=== PATIENT | male | born 1970 | race Caucasian/White ===

== ENCOUNTER 2016-10-06 22:08 | Emergency (ER) | payer OTHER ==
[~2016-10-06] VITALS: Ht 176.5 cm; Wt 89.8 kg
[~2016-10-06 22:08] MED LIST: CEFDINIR 300MG300 MG PO; FLEXERIL10 MG PO; LORTAB 500 MG-71 TAB PO; MEDROL 4MG. DOSE4 MG PO; MUCINEX1200 MG PO; PREDNISONE 20MG20 MG PO; [UNRECOGNIZED DRUG - OTHER] PO
[2016-10-06] MEDS ORDERED: ALBUTEROL-200 PUFFS/ IH (22:18)
[2016-10-06] MEDS ORDERED: AVPAK AZITHROM250 MG PO (22:18)
--- NOTE | 2016-10-07 00:04 | Emergency Room Report ---
History of Present Illness Time Seen by [id number] Presenting Problem in Triage Pt arrived:Walked Presenting Problem:PT COMPLAINING OF SHORTNESS OF BREATH. PT STATES IT HURTS WHEN HE TAKES A DEEP BREATH. PT STATES HE IS CURRENTLY BEING TREATED FOR A BACTERIAL LUNG INFECTION WITH AZITHROMYCIN, ALBUTEROL INHALER. PT STATES THAT HE STARTED THE ANTIBIOTICS ON 10/04/16. PT STATES HE IS ALSO HAVING PAIN IN UPPER RIGHT SIDE OF CHEST THAT STARTED ABOUT 2100 THIS PM Onset of symptoms date/time:10/02/16 or onset unknown for: Treatment Prior to Arrival: PT GIVEN AZITHROMYCIN AND ALBUTEROL ON 10/04/16 [employer] Provided by:PHYSICIAN Sepsis Risk Assessment: Temp: 98.5 B/P: 142/77 MAP: 122 Pulse: 97 Resp: 18 Recent fever? N Clinical Suspician of Infection? N Mental Status: 1 - Regular (Normal Baseline) Sepsis Risk:Low Sepsis Risk Have you (or family members/close friends) recently traveled outside the [place]? N If Yes, where/when: Have you had exposure to infectious disease within the past month? N TB? Other? 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 No Angina: No GA: No Hypertension? No Hyperlipidemia? No CHF? No DVT? No PE? No COPD? No Asthma? Yes Anemia? No GERD? No Gastric ulcers? No GI Bleed? No Hernia? No Thyroid Problems? No Hypothyroidism? No CVA? No Seizures? No Diabetes? No Renal Insuffiency? No End Stage Renal Disease? No UTI? No Stones? No BPH? No GB Disease: No Nephritic Syndrome? No Asplenia? No Hepatitis? No Sickle Cell Disease? No Arthritis? No Migraines? No Cataracts? No Glaucoma? No MRSA? No HIV? No TB? No Anxiety? No Depression? No Cancer? No More? No Immunization Hx DT/Tetanus 1-4 YRS Surgical Hx Previous Surgery?Y HERNIA X 2 EAR TUBES X 2 Family History Family Hx Diabetes No CAD Yes Hypertension Yes Hyperlipidemia Yes Cancer Yes TB No Social History Smoking Hx Smoker: Former Smoker Tobacco: Yes Type Snuff Packs/day < 1 Pack Are you/the child exposed to second-hand smoke: Yes Alcohol Alcohol: No Drugs none Review of Systems All Other Systems Reviewed and Negative Constitutional see HPI, denies fever, other Eyes denies drainage ENT denies: ear pain, epistaxis, throat pain. Respiratory cough, shortness of breath, denies wheezing Cardiovascular denies chest pain, denies syncope Gastrointestinal denies diarrhea, denies vomiting Genitourinary denies: dysuria, frequency, hesitancy, hematuria. Musculoskeletal denies back pain, denies gout, denies joint pain, denies neck pain Skin denies rash Psychiatric/Neurological denies headache, denies seizure Physical Exam Vital Signs Vital Signs Date Time Temp Pulse Resp B/P Pulse O2 O2 Flow FiO2 Ox Delivery Rate 10/07 0055 83 18 125/84 94 10/07 0033 18 10/06 2345 97 18 142/77 94 10/06 2251 100 18 132/80 94 10/06 2211 98.5 113 18 146/111 97 - WBC >12,000 or <4,000 or 10% bands? 2 or more SIRS Criteria Met? B/P:142/77 MAP:122 Creatinine >2.0? UA output<0.5ml/kg/hr for 2 hrs? Platelet count >100,000? Lactate >2.0mmol/1? INR >1.2 or PTT > than 60 sec? Evidence of Organ Dysfunction? Provider documented clinical suspician of infection? N Sepsis Criteria Count: 1 Sepsis Risk: Low Sepsis Risk General Appearance no apparent distress Eye Exam - bilateral eye PERRL, bilateral eye EOMI Ear, Nose, Throat normal ENT inspection Neck supple Respiratory Status No: respiratory distress. Lung Sounds right: rales. Cardiovascular regular rate/rhythm, no JVD, no murmur, no rub Peripheral Pulses Pulses normal Yes Gastrointestinal soft Extremities normal inspection Strength 4 Upper Ext (L), 4 Upper Ext (R), 4 Lower Ext (L), 4 Lower Ext (R) Neurologic alert, spinner open end II-XII nml as tested, no motor/sensory deficits Reflexes Reflexes normal Yes Mental status normal mood/affect Skin no rash cons.w/shingles Medical Decision Making LABS/Meds/Orders Pt receiving controlled substance in ED? No Results/Orders Laboratory Tests 10/07/1619: Lactic Acid 0.6 10/07/16 002: Sodium 142, Potassium 4.2, Chloride 106, Carbon Dioxide 27, BUN 16, Creatinine 0.9, Estimated Creat Clear 129, Estimated GFR (MDRD) 90, Glucose 103, Calcium 8.9, Total Bilirubin 0.5, AST 7 L, ALT 27, Alkaline Phosphatase 78, Total Protein 7.4, Albumin 3.8, Globulin 3.6 H, Albumin/Globulin Ratio 1.1, WBC 8.9, RBC 5.37, Hgb 15.6, Hct 46.0, MCV 85.6, RDW 14.3, Plt Count 187, MPV 8.2, Gran % 70.9, Gran # 6.3, Lymphocytes % 18.3, Monocytes % 9.0, Eosinophils % 1.4, Basophils % 0.4, Lymphocytes # 1.6, Monocytes # 0.8, Eosinophils # 0.1, Basophils # 0.0, PUBS MCHC 33.9, MCH 29.0 Current Medication Orders Sig/María Elena Start time Last Medication Dose Route Stop Time Status Admin Ceftriaxone Sodium 1 GM ONCE ONE 10/07 0100 AC 10/07 Sodium Chloride 50 ML IV 10/07 128 0053 Sodium Chloride 50 ML .STK-MED ONE 10/07 0051 DC IV Ceftriaxone Sodium 0 .STK-MED ONE 10/07 49 DC IV Sodium Chloride 1,000 ML .STK-MED ONE 10/07 0030 DC IV Ketorolac 0 .STK-MED ONE 10/07 28 DC Tromethamine .ROUTE Methylprednisolone 0 .STK-MED ONE 10/07 28 DC Sodium Succinate .ROUTE Ketorolac 30 MG ONCE ONE 10/07 14 DC 10/07 Tromethamine IV 10/07 15 0033 Methylprednisolone 125 MG ONCE ONE 10/07 14 DC 10/07 Sodium Succinate IV 10/07 15 0032 Sodium Chloride 10 ML PRN PRN 10/07 14 AC IV 10/08 0004 Sodium Chloride 1,000 ML .Q1H1M 10/07 0015 AC 10/07 IV 10/07 0115 0033 Sodium Chloride 10 ML PRN PRN 10/07 0015 AC IV 10/08 0005 Albuterol/Ipratropium 3 ML ONCE ONE 10/06 2229 DC 10/06 INH 10/06 Albuterol/Ipratropium 0 .STK-MED ONE 10/06 2228 DC INH Orders Procedure Date/time Status IV SALINE LOCK 10/07 0005 Active CULTURE, BLOOD 10/07 0005 Active LACTIC ACID 10/07 0005 Complete COMPLETE METABOLIC PANEL 10/07 0005 Complete CBC WITH AUTO DIFF 10/07 0005 Complete RT REQUEST DUONEB 10/06 2219 Active CHEST(2 VIEWS-NOT PORTABLE) 10/06 2219 Active XRAY/CT/US XRAY/CT/US XRAY chest XR interpretation by reviewed by me Xray Results abnormal (rt cap) Departure Departure Time of Disposition 010 Disposition DC Home or Self Care(routine) Clinical Impression Primary Impression: CAP (community acquired pneumonia) Condition STABLE Referrals Herbert Westbrook MD (Family) Patient Instructions DI for Pneumonia -- Adult Additional Instructions fluids and see pcp in am as planned Discharge Counseling Counseled pt/family regarding diagnosis, test results, medications/RX, follow up needs ED Critical Care Critical Care No at 0110
[2016-10-07 00:36] LABS: HEMOGLOBIN 15.6 g/dL (14.1-18.0); LYMPH # 1.6 K/mm3 (0.7-4.5); LYMPH % 18.3 % (10-50)
[2016-10-07 01:27] VITALS: BP 125/84
--- NOTE | 2016-10-07 10:49 | RADIOLOGY REPORT PS360 ---
CHEST(2 VIEWS-NOT PORTABLE) HISTORY: SHORTNESS OF BREATH ORDERING PHYSICIAN: Lorne Goldberg MD PATIENT AGE: 46 years COMPARISON: 10/06/2014 FINDINGS: The cardiomediastinal silhouette and pulmonary vascularity are within normal limits. There are minimal atelectatic changes in the left lung base. There is a mild chronic prominence of the bronchovascular markings which may be seen with chronic peribronchial inflammatory change/bronchitis. No lobar consolidation or collapse.. No acute bony abnormalities. IMPRESSION: Chronic changes with mild left basilar atelectasis
== END 2016-10-07 01:28 | disposition home or self-care (01) ==
LOC: ER 22:08
PROVIDERS: Emergency Medicine
DX: J18.9 Pneumonia, unspecified organism (principal); Z87.891 Personal history of nicotine dependence; J45.909 Unspecified asthma, uncomplicated